=== PATIENT | male | born 1965 | race Caucasian/White ===

== ENCOUNTER 2017-12-06 23:30 | Emergency (ER) | payer OTHER ==
[~2017-12-06] VITALS: Ht 177.8 cm; Wt 97.5 kg
[2017-12-06] MEDS ORDERED: PROZAC20 MG PO (23:43)
--- NOTE | 2017-12-07 16:07 | EKG ---
[facility] [address] [facility] [place] [address] Signed Sinus bradycardia Incomplete right bundle branch block Borderline ECG No previous ECGs available Confirmed by MICHAEL PORRAS MD ([id number]) on 12/07/2017 4:07:05 PM Electronically Signed By: MICHAEL PORRAS MD 12/07/17 1607 PATIENT NAME: KYLE KRUSE Electrocardiogram DATE OF : 67 PHYSICIAN: MICHAEL PORRAS MD REPORT #: [id number] REPORT IS CONFIDENTIAL AND NOT TO BE RELEASED WITHOUT AUTHORIZATION
== END 2017-12-07 01:03 | disposition home or self-care (01) ==
LOC: ED 23:30
DX: F41.0 Panic disorder [episodic paroxysmal anxiety] (principal)
CPT/HCPCS: 80053; 81001; 84484; 85025; 93005; 93010; 96374; 99284; J2060